=== PATIENT | female | born 1985 | race American Indian/Alaskan Native ===

== ENCOUNTER 2017-04-13 11:09 | Emergency (ER) | payer SELFPAY ==
[2017-04-13] MEDS ORDERED: ASPIRIN 81 MG CHEWABLE TABLETS PO ONE (11:30)
[2017-04-13 11:33] VITALS: PULSE 78; TEMP 98.4; BMI 30.4
--- NOTE | 2017-04-13 11:33 | PDOC ---
Attending Attestation - Resident Resident Name: Tiffanie Pickard - ED Attending Attestation I have performed the following: I have examined & evaluated the patient, The case was reviewed & discussed with the resident, I agree w/resident's findings & plan, Exceptions are as noted - HPI HPI: 04/13/17 11:32 Chest pain and cough - Physicial Exam PE: 04/13/17 11:33 vss/NAD - Medical Decision Making 04/13/17 11:[address] Pickard's Assessment and Plan
[2017-04-13 12:56] LABS: BASOPHIL 0.6 % (0-2.0); EOSINOPHIL 1.7 % (0-4.5); MCH 27.2 pg (25.7-33.7); MCHC 32.2 g/dl (32.0-36.0); MEAN CELL VOLUME 84.4 fl (80-96); MEAN PLT VOLUME 8.8 fl (7.5-11.1); NEUTROPHILS 59.1 % (42.8-82.8); PLATELET COUNT 279 K/MM3 (134-434); RDW 14.2 % (11.6-15.6); WHITE BLOOD COUNT 8.3 K/mm3 (4.0-10.0)
[2017-04-13 13:10] LABS: INR 0.97 (0.82-1.09); PROTHROMBIN TIME (PATIENT) 10.7 SEC (9.98-11.88)
[2017-04-13 13:22] LABS: ALBUMIN 3.9 g/dl (3.4-5.0); ANION GAP 9 (8-16); BILIRUBIN,TOTAL 0.5 mg/dL (0.2-1.0); CO2 25 mmol/L (21-32); CREATININE 0.5 mg/dL (0.55-1.02); GLUCOSE,RANDOM 97 mg/dL (74-106); SGOT/AST 15 U/L (15-37); SGPT/ALT 23 U/L (12-78)
[2017-04-13 13:24] LABS: ALK PHOS 93 U/L (45-117); CPK 126 IU/L (26-192); TROPONIN I < 0.02 ng/ml (0.00-0.05)
--- NOTE | 2017-04-13 15:19 | PDOC ---
History of Present Illness - General Chief Complaint: Chest Pain Stated Complaint: CHEST PAIN Time Seen by Provider: 04/13/17 11:26 History Source: Patient, Friend (neighbor and neighbor's sister) Exam Limitations: Language Barrier - History of Present Illness Initial Comments: 31yo F with PMH of recently diagnosed breast cancer presents c/o chest pain to Left breast. Pain is described as sharp/stabbing, began last night, contained within the Left breast, does not radiate, rated 7/10. Pt took Tylenol and Motrin, which did not relieve the pain. Pt also c/o a cough x 3 days. Pt arrived here from [place] one week ago, via a 13 [address] plane ride. Pt denies fever , palpitations, SOB, wheezing. 04/13/17 15:12 Past History - Past Medical History Allergies/Adverse Reactions: Allergies Allergy/AdvReac Type Severity Reaction Status Date / Time Penicillins Allergy Verified 04/13/17 11:26 Home Medications: Ambulatory Orders Metformin HCl 850 mg PO BID 04/13/17 Cancer: Yes (Breast left) Diabetes: Yes (po meds) - Surgical History Cholecystectomy: Yes - Family Disease History Family Disease History: Diabetes: Mother (htn), Heart Disease: Father (htn), Mother - Psycho/Social/Smoking Cessation Hx Suicidal Ideation: No Smoking History: Never smoked Information on smoking cessation initiated: No Hx Alcohol Use: No Drug/Substance Use Hx: No Substance Use Type: None Review of Systems - Review of Systems Able to Perform ROS?: Yes Is the patient limited Arabic proficient: Yes Constitutional: No: Chills, Diaphoresis, Fever HEENTM: No: Recent change in vision, Ear Pain, Nose Pain, Throat Pain Respiratory: Yes: Cough. No: Orthopnea, Shortness of Breath, Stridor, Wheezing , Hemoptysis Cardiac (ROS): Yes: Chest Pain (Left breast pain). No: Irregular Heart Rate, Lightheadedness, Palpitations, Syncope ABD/GI: No: Abdominal Distended, Constipated, Diarrhea, Nausea, Rectal Bleeding , Vomiting, Abdominal cramping : No: Burning, Dysuria, Hematuria Musculoskeletal: No: Joint Pain, Muscle Pain Integumentary: No: Bruising, Erythema, Rash Neurological: No: Headache, Paresthesia, Dizziness *Physical Exam - Vital Signs Last Vital Signs Temp Pulse Resp BP Pulse Ox 98.4 F 78 19 136/84 100 04/13/17 11:24 04/13/17 11:24 04/13/17 11:24 04/13/17 11:24 04/13/17 11:24 - Physical Exam Comments: Left breast has a palpable 1-2cm lump at 2 o'clock 3cm from the nipple. No other lumps appreciated bilaterally. The lump is tender to palpation, and is the source of pt's chest pain. 04/13/17 15:53 General Appearance: Yes: Nourished, Appropriately Dressed. No: Apparent Distress HEENT: positive: EOMI, Normal Voice, Other (moist mucous membranes). negative: Pale Conjunctivae, Scleral Icterus (R), Scleral Icterus (L) Neck: positive: Trachea midline, Supple Respiratory/Chest: positive: Lungs Clear, Normal Breath Sounds. negative: Respiratory Distress, Accessory Muscle Use Cardiovascular: positive: Regular Rhythm, Regular Rate, S1, S2. negative: Murmur Gastrointestinal/Abdominal: positive: Soft. negative: Distended, Guarding, Rebound, Tenderness Extremity: negative: Swelling, Calf Tenderness, Erythema Integumentary: positive: Dry, Warm. negative: Rash Neurologic: positive: Fully Oriented, Alert, Normal Mood/Affect, Normal Response , Motor Strength 5/5 ED Treatment Course - LABORATORY CBC & Chemistry Diagram: 04/13/17 12:27 04/13/17 12:27 - ADDITIONAL ORDERS Additional order review: Laboratory Results 04/13/17 04/13/17 04/13/17 12:27 12:27 12:27 INR 0.97 Sodium 139 Potassium 4.3 Chloride 105 Carbon Dioxide 25 Anion Gap 9 BUN 11 Creatinine 0.5 L Creat Clearance w eGFR > 60 Random Glucose 97 Calcium 9.0 Magnesium 2.0 Total Bilirubin 0.5 AST 15 ALT 23 Alkaline Phosphatase 93 Creatine Kinase Cancelled 126 Troponin I Cancelled < 0.02 Total Protein 8.0 Albumin 3.9 Urine HCG, Qual 04/13/17 11:49 INR Sodium Potassium Chloride Carbon Dioxide Anion Gap BUN Creatinine Creat Clearance w eGFR Random Glucose Calcium Magnesium Total Bilirubin AST ALT Alkaline Phosphatase Creatine Kinase Troponin I Total Protein Albumin Urine HCG, Qual Negative 04/13/17 12:27 RBC 4.32 MCV 84.4 MCHC 32.2 RDW 14.2 MPV 8.8 Neutrophils % 59.1 Lymphocytes % 32.0 Monocytes % 6.6 Eosinophils % 1.7 Basophils % 0.6 - RADIOLOGY Radiology Studies Ordered: Category Date Time Status CHEST CTA [CT] Stat CT Scan 04/13/17 12:15 Completed - Medications Given in the ED: ED Medications Discontinued Medications Generic Name Dose Route Start Last Admin Trade Name Jennifer PRN Reason Stop Dose Admin Aspirin 162 mg 04/13/17 11:30 04/13/17 12:31 Asa - PO 04/13/17 11:31 Not Given ONCE ONE Medical Decision Making - Medical Decision Making 31yo F with PMH of recently diagnosed breast cancer presents c/o chest pain to Left breast x 1 day. Chest is not tender to palpation. Lump appreciated at 2 o 'clock on Left breast is tender to palpation and is the source of pt's chest pain. Pt arrived here from [place] one week ago, via a 13 hr plane ride. CBC with diff and CMP wnl troponins (-) EKG - NSR urine (-) Chest CT/CTA - reveals no pulmonary embolism. No enlarged mediastinal or hilar lymph nodes appreciated. Spoke with Dr. Dawn regarding f/u care for pt regarding newly diagnosed breast ca. Pt can go home with instructions to f/u with Dr. Dawn (Oncology). [employer] work provided pt with the [employer], for discounts for health insurance. 04/13/17 15:52 *DC/Admit/Observation/Transfer Diagnosis at time of Disposition: Atypical chest pain - Discharge Dispostion Admit: No - Referrals Referrals: Crystal Dawn MD [Staff Physician] - - Patient Instructions Printed Discharge Instructions: Breast Cancer in Women Additional Instructions: Please follow-up with Dr. Hernandez for further medical treatment of your newly diagnosed breast cancer. You can always come back to [facility] for persistent or worsening symptoms of chest pain, or for any medical emergency.
[2017-04-13 16:35] VITALS: BP 120/81
--- NOTE | 2017-04-14 09:27 | EKG ---
Test Reason : Blood Pressure : / mmHG Vent. Rate : 075 BPM Atrial Rate : 075 BPM P-R Int : 142 ms QRS Dur : 080 ms QT Int : 400 ms P-R-T Axes : 008 033 034 degrees QTc Int : 446 ms NORMAL SINUS RHYTHM NORMAL ECG NO PREVIOUS ECGS AVAILABLE Confirmed by MD LATRICIA, LENIN ([id number]) on 04/14/2017 9:26:36 AM Referred By: Confirmed By:LENIN ROME MD
== END 2017-04-13 16:35 | disposition home or self-care (01) ==
LOC: JER 11:09
DX: R07.89 Other chest pain (principal); C50.912 Malignant neoplasm of unspecified site of left female breast
CPT/HCPCS: 36415; 71275-TC; 80053; 83735; 84484; 84703; 85025; 85610; 93005; 93010; 99284-25

== ENCOUNTER 2017-07-06 09:17 | Emergency (ER) | payer OTHER ==
[2017-07-06 09:39] VITALS: BP 125/78; PULSE 87; TEMP 98.9; BMI 32.0
--- NOTE | 2017-07-06 10:58 | PDOC ---
History of Present Illness - General Chief Complaint: Cold Symptoms Stated Complaint: COUGH, THROAT PAIN Time Seen by Provider: 07/06/17 10:05 History Source: Patient Exam Limitations: No Limitations - History of Present Illness Initial Comments: 07/06/17 10:53 Patient is a [31-year-old female with history of thf-gdrjzmp-kotnztbbi diabetes on metformin presents for evaluation of productive cough, sore throat with butler sputum, intermittent fever, now laryngitis this a.m. Denies any chest pain or shortness of breath.] Past Medical History: [Denies]. Allergies: No known allergies Medications: [See medication list] Family History: Non-contributory Social History: Denies smoking, alcohol use, or IVDU Review of Systems GENERAL/CONSTITUTIONAL: [No fever or chills. No weakness. No weight change.] HEAD, EYES, EARS, NOSE AND THROAT: [No change in vision. No ear pain or discharge. Sore throat,hoarse voice] CARDIOVASCULAR: [No chest pain or shortness of breath.] RESPIRATORY: [Productive cough,No wheezing, or hemoptysis.] GASTROINTESTINAL: [No nausea, vomiting, diarrhea or constipation. No rectal bleeding.] GENITOURINARY: [No dysuria, frequency, or change in urination.] MUSCULOSKELETAL: [No joint or muscle swelling or pain. No neck or back pain.] SKIN AND BREASTS: [No rash or easy bruising.] NEUROLOGIC: [No headache, vertigo, loss of consciousness, or loss of sensation.] PSYCHIATRIC: [No depression or anxiety.] ENDOCRINE: [No increased thirst. No abnormal weight change.] HEMATOLOGIC/LYMPHATIC: [No anemia, easy bleeding, or history of blood clots.] ALLERGIC/IMMUNOLOGIC: [No hives or skin allergy. No latex allergy.] Physical Exam: GENERAL: [The patient is awake, alert, and fully oriented, in no acute distress. ] HEAD: [Normal with no signs of trauma.] EYES: [Pupils equal, round and reactive to light, extraocular movements intact, sclera anicteric, conjunctiva clear.] ENT: [Ears normal, nares patent, oropharynx clear without exudates. Moist mucous membranes. No uvula deviation. Hoarse voice] NECK: [Normal range of motion, supple without lymphadenopathy, JVD, or masses.] LUNGS: [Breath sounds equal, rhonchi bilaterally, cleared with cough. No wheezes, and no crackles.] HEART: [Regular rate and rhythm, normal S1 and S2 without murmur, rub or gallop. ] ABDOMEN: [Soft, nontender, normoactive bowel sounds. No guarding, no rebound. No masses. No bruising or abrasions] MUSCULOSKELETAL: [Normal range of motion, no edema. No clubbing or cyanosis. No cords, erythema, or tenderness. No CVA Tenderness with fist.] NEUROLOGICAL: [Cranial nerves II through XII grossly intact. Normal speech, normal gait.] SKIN: [Warm, Dry, normal turgor, no rashes or lesions noted.] 07/06/17 10:56 Past History - Past Medical History Allergies/Adverse Reactions: Allergies Allergy/AdvReac Type Severity Reaction Status Date / Time Penicillins Allergy Verified 07/06/17 09:36 Home Medications: Ambulatory Orders Metformin HCl 850 mg PO BID 04/13/17 Azithromycin [Zithromax 250mg Tablets -] 250 mg PO UTDICT #6 tab 07/06/17 Cancer: Yes (Breast) COPD: No Diabetes: Yes (po meds) - Surgical History Cholecystectomy: Yes - Family Disease History Family Disease History: Diabetes: Mother (htn), Heart Disease: Father (htn), Mother - Suicide/Smoking/Psychosocial Hx Smoking History: Never smoked Hx Alcohol Use: No Drug/Substance Use Hx: No Substance Use Type: None *Physical Exam - Vital Signs Last Vital Signs Temp Pulse Resp BP Pulse Ox 98.9 F 87 19 125/78 99 07/06/17 09:36 07/06/17 09:36 07/06/17 09:36 07/06/17 09:36 07/06/17 09:36 ED Treatment Course - ADDITIONAL ORDERS Additional order review: 07/06/17 10:15 Group A Strep Rapid Antigen - Final Throat Medical Decision Making - Medical Decision Making 07/06/17 10:56 A/P : Patient with hoarse voice, sore throat, productive cough, rhonchi cleared with cough rapid strep sent for sore throat although clinical presentation does not suggest strep. Patient with bronchitis will DC patient on azithromycin, follow-up with PMD in 2 days if symptoms persist. I discussed the physical exam findings, ancillary test results and final diagnoses with the patient. I answered all of the patient's questions. The patient was satisfied with the care received and felt comfortable with the discharge plan and treatment plan. The patient will call to arrange follow-up and will return to the Emergency Department with any new, persistent or worsening symptoms. 07/06/17 10:57 *DC/Admit/Observation/Transfer Diagnosis at time of Disposition: Upper respiratory infection Qualifiers: URI type: unspecified URI Qualified Code(s): J06.9 - Acute upper respiratory infection, unspecified - Discharge Dispostion Disposition: HOME Condition at time of disposition: Stable Admit: No - Prescriptions Prescriptions: Azithromycin [Zithromax 250mg Tablets -] 250 mg PO UTDICT #6 tab - Referrals - Patient Instructions Additional Instructions: Warm saltwater gargles, change her toothbrush after completing antibiotic therapy. Recommend follow-up with PMD in 2 days if symptoms persist. Motrin for fever. - Post Discharge Activity Forms/Work/School Notes: Back to Work
== END 2017-07-06 11:01 | disposition home or self-care (01) ==
LOC: JERFT 09:17
DX: J06.9 Acute upper respiratory infection, unspecified (principal); E11.9 Type 2 diabetes mellitus without complications; Z79.84 Long term (current) use of oral hypoglycemic drugs; Z85.3 Personal history of malignant neoplasm of breast
CPT/HCPCS: 87070; 87430; 99281-25

== ENCOUNTER 2019-06-28 20:38 | Emergency (ER) | payer OTHER ==
[2019-06-28 20:47] VITALS: BP 111/55; PULSE 89; TEMP 98.7; BMI 32.8
--- NOTE | 2019-06-28 22:32 | PDOC ---
History of Present Illness - General Chief Complaint: Ear Problem Stated Complaint: ear pain Time Seen by Provider: 06/28/19 22:15 History Source: Patient Exam Limitations: Clinical Condition - History of Present Illness Initial Comments: 06/28/19 22:33 Patient with no significant past medical history present with complaint of right ear pain today with feeling of decreased hearing in right ear since this morning. Denies fever, chills, nausea or vomiting. Denies headache or dizziness. Denies any other symptoms. Patient did not take anything for symptoms Is this a multiple visit Asthma Patient?: No Timing/Duration: 24 hours Past History - Past Medical History Allergies/Adverse Reactions: Allergies Allergy/AdvReac Type Severity Reaction Status Date / Time Penicillins Allergy Verified 06/28/19 20:47 Home Medications: Ambulatory Orders metFORMIN HCL [Metformin HCl] 850 mg PO BID 04/13/17 Azithromycin [Zithromax 250mg Tablets -] 250 mg PO UTDICT #6 tab 07/06/17 Neomycin/Polymyxin B/Hydrocort [Ainymnlv-Ihiypacxr-Qc Ear Susp] 4 drop OT Q8H 5 Days #1 bottle 06/28/19 Cancer: Yes (Breast) COPD: No Diabetes: Yes (po meds) - Surgical History Cholecystectomy: Yes - Psycho Social/Smoking Cessation Hx Smoking History: Never smoked Hx Alcohol Use: No Drug/Substance Use Hx: No Substance Use Type: None Review of Systems - Review of Systems Able to Perform ROS?: Yes Is the patient limited [place] proficient: No Constitutional: No: Chills, Fever, Malaise HEENTM: Yes: Symptoms Reported, See HPI, Ear Pain (right ear pain). No: Eye Pain, Blurred Vision, Tearing, Recent change in vision, Double Vision, Cataracts , Ocular Prothesis, Ear Discharge, Nose Pain, Nose Congestion, Tinnitus, Nose Bleeding, Hearing Loss, Throat Pain, Throat Swelling, Mouth Pain, Dental Problems, Difficulty Swallowing, Mouth Swelling, Other Respiratory: No: Symptoms reported, See HPI, Cough, Orthopnea, Shortness of Breath, SOB with Exertion, SOB at Rest, Stridor, Wheezing, Productive cough, Hemoptysis, Other Cardiac (ROS): No: Symptoms Reported, See HPI, Chest Pain, Edema, Irregular Heart Rate, Lightheadedness, Palpitations, Syncope, Chest Tightness, Other ABD/GI: No: Symptoms Reported, See HPI, Nausea, Vomiting Musculoskeletal: No: Symptoms Reported, Muscle Pain Integumentary: No: Symptoms Reported Neurological: No: Symptoms reported, Headache, Pre-Existing Deficit, Unsteady Gait, Ataxia, Dizziness All Other Systems: Reviewed and Negative *Physical Exam - Vital Signs Last Vital Signs Temp Pulse Resp BP Pulse Ox 98.7 F 89 18 111/55 L 99 06/28/19 20:44 06/28/19 20:44 06/28/19 20:44 06/28/19 20:44 06/28/19 20:44 - Physical Exam Comments: 06/28/19 22:36 GENERAL: Well developed, well nourished. Awake and alert. No acute distress. HEENT: Mild serous fluid in right ear canal with moderate swelling external right ear canal. Left ear canal with minimal cerumen with normal tympanic membrane. Normocephalic, atraumatic. PERRLA, EOMI. No conjunctival pallor. Sclera are non-icteric. Moist mucous membranes. Oropharynx is clear. NECK: Supple. Full ROM. CARDIOVASCULAR: Regular rate and rhythm. No murmurs, rubs, or gallops. Distal pulses are 2+ and symmetric. PULMONARY: No evidence of respiratory distress. Lungs clear to auscultation bilaterally. No wheezing, rales or rhonchi. MUSCULOSKELETAL Normal range of motion at all joints. SKIN: Warm and dry. Normal capillary refill. No rashes. No jaundice. NEUROLOGICAL: Alert, awake, appropriate. Gait is normal without ataxia. PSYCHIATRIC: Cooperative. Good eye contact. Appropriate mood General Appearance: Yes: Nourished, Appropriately Dressed. No: Apparent Distress Medical Decision Making - Medical Decision Making 06/28/19 22:34 Patient with no significant past medical history present with complaint of right ear pain today with feeling of decreased hearing in right ear since this morning. Denies fever, chills, nausea or vomiting. Denies headache or dizziness. Denies any other symptoms. Patient did not take anything for symptoms Exam significant for moderate swelling and right ear canal with small amount of serous fluid in right ear canal. Left ear canal with minimal cerumen with normal tympanic membrane. Patient afebrile. Patient stable for outpatient management otitis externa with neomycin with polymycin eardrops with advised to take Motrin as needed for pain and follow-up with ENT if no improvement in 3 days. Patient stable for discharge Discharge - Discharge Information Problems reviewed: Yes Clinical Impression/Diagnosis: Left otitis externa Qualifiers: Otitis externa type: diffuse Chronicity: acute Qualified Code(s): H60.312 - Diffuse otitis externa, left ear Condition: Stable Disposition: HOME - Admission No - Additional Discharge Information Prescriptions: Neomycin/Polymyxin B/Hydrocort [Ikyunpgo-Pcoxynuvg-Jp Ear Susp] 4 drop OT Q8H 5 Days #1 bottle - Follow up/Referral Referrals: Tom Barahona MD [Staff Physician] - - Patient Discharge Instructions Patient Printed Discharge Instructions: DI for Otitis Externa Additional Instructions: You are being treated for right ear infection. Take prescribed eardrops as prescribed. Take Motrin as needed for pain. Follow-up referred ENT if symptoms does not improve in 3 days - Post Discharge Activity
== END 2019-06-28 22:40 | disposition home or self-care (01) ==
LOC: JERFT 20:38
DX: H60.311 Diffuse otitis externa, right ear (principal); Z85.3 Personal history of malignant neoplasm of breast; E11.9 Type 2 diabetes mellitus without complications; Z88.0 Allergy status to penicillin
CPT/HCPCS: 99281-25

== ENCOUNTER 2020-03-29 11:44 | Emergency (ER) | payer OTHER ==
[2020-03-29 11:57] VITALS: TEMP 99.1; BMI 29.9
[2020-03-29] MEDS ORDERED: FAMOTIDINE 20 MG/50 ML IVPB 20 MG/50 ML MG IVPB ONE ×2 (12:54→13:57)
[2020-03-29] MEDS ORDERED: SODIUM CHLORIDE 1,000 ML IV STA (12:54)
[2020-03-29] MEDS ORDERED: METOCLOPRAMIDE HCL INJECTION 10 MG/2 ML VIAL IVPB ONE (12:54)
--- NOTE | 2020-03-29 13:13 | PDOC ---
History of Present Illness - General Chief Complaint: Vomiting/Diarrhea Stated Complaint: VOMITING/DIARRHEA Time Seen by Provider: 03/29/20 12:51 History Source: Patient Exam Limitations: Clinical Condition - History of Present Illness Initial Comments: 03/29/20 13:07 Patient with no significant past medical history present with complaint of 5-day history of nausea, vomiting and periumbilical and suprapubic abdominal pain. Patient reported being seen in urgent care 2 days ago for symptoms and was prescribed Zofran but still has been feeling nauseous. LMP March 20. Denies diarrhea or constipation. Reported last bowel movement was yesterday which was normal for her. Denies fever, chills, cough, shortness of breath, dizziness, weakness. Denies any other symptoms. Denies history of abdominal surgeries. Denies urinary frequency, dysuria, burning urination, vaginal discharge or vaginal bleeding. Is this a multiple visit Asthma Patient?: No Timing/Duration: other (5 days) Past History - Medical History Allergies/Adverse Reactions: Allergies Allergy/AdvReac Type Severity Reaction Status Date / Time Penicillins Allergy Verified 03/29/20 11:55 Home Medications: Ambulatory Orders metFORMIN HCL [Metformin HCl] 850 mg PO BID 04/13/17 Azithromycin [Zithromax 250mg Tablets -] 250 mg PO UTDICT #6 tab 07/06/17 Neomycin/Polymyxin B/Hydrocort [Auqisgdd-Lqrlxnkas-Zj Ear Susp] 4 drop OT Q8H 5 Days #1 bottle 06/28/19 Ciprofloxacin [Cipro (Restricted To Id)] 500 mg PO Q12H 7 Days #14 tablet 03/29/20 Cancer: Yes (Breast) COPD: No Diabetes: Yes (po meds) - Surgical History Cholecystectomy: Yes - Reproductive History Is Patient Now?: No - Immunization History Immunization Up to Date: Yes - Psycho-Social/Smoking History Smoking History: Never smoked - Substance Abuse Hx (Audit-C & DAST Scrn) How often the patient has a drink containing alcohol: Never Score: In Men: 4 or > Positive; In Women: 3 or > Positive: 0 Screen Result (Pos requires Nsg. Audit-10AR): Negative In the last yr the pt used illegal drug/Rx for NonMed reason: No Score: Yes response is considered Positive: 0 Screen Result (Positive result requires Nsg. DAST-10): Negative Review of Systems - Review of Systems Able to Perform ROS?: Yes Is the patient limited Uzbek proficient: No Constitutional: No: Chills, Fever, Malaise HEENTM: No: Symptoms Reported, See HPI, Eye Pain, Blurred Vision, Tearing, Recent change in vision, Double Vision, Cataracts, Ear Pain, Ocular Prothesis, Ear Discharge, Nose Pain, Nose Congestion, Tinnitus, Nose Bleeding, Hearing Loss, Throat Pain, Throat Swelling, Mouth Pain, Dental Problems, Difficulty Swallowing, Mouth Swelling, Other Respiratory: No: Symptoms reported, See HPI, Cough, Orthopnea, Shortness of Breath, SOB with Exertion, SOB at Rest, Stridor, Wheezing, Productive cough, Hemoptysis, Other Cardiac (ROS): No: Symptoms Reported, See HPI, Chest Pain, Edema, Irregular Heart Rate, Lightheadedness, Palpitations, Syncope, Chest Tightness, Other ABD/GI: Yes: Symptoms Reported, See HPI, Nausea, Abdominal cramping. No: Abdominal Distended, Abd. Pain w/ defecation, Blood Streaked Bowels, Constipated, Diarrhea, Difficulty Swallowing, Poor Appetite, Poor Fluid Intake, Rectal Bleeding, Vomiting, Indigestion, Tarry Stools, Other : No: Symptoms Reported, Burning, Dysuria, Discharge, Frequency, Urgency Musculoskeletal: No: Symptoms Reported, Back Pain All Other Systems: Reviewed and Negative *Physical Exam - Vital Signs Last Vital Signs Temp Pulse Resp BP Pulse Ox 99.1 F 100 H 18 106/79 100 03/29/20 11:55 03/29/20 11:55 03/29/20 11:55 03/29/20 11:55 03/29/20 11:55 - Physical Exam 03/29/20 13:14 GENERAL: Well developed, well nourished. Awake and alert. No acute distress. HEENT: Normocephalic, atraumatic. PERRLA, EOMI. No conjunctival pallor. Sclera are non-icteric. Moist mucous membranes. Oropharynx is clear. NECK: Supple. Full ROM. CARDIOVASCULAR: Regular rate and rhythm. No murmurs, rubs, or gallops. Distal pulses are 2+ and symmetric. PULMONARY: No evidence of respiratory distress. Lungs clear to auscultation bilaterally. No wheezing, rales or rhonchi. ABDOMINAL: Soft. Moderate suprapubic abdominal tenderness with mild periumbilical tenderness. Non-distended. No rebound or guarding. No organomegaly. Mild increased diffuse bowel sounds. MUSCULOSKELETAL Normal range of motion at all joints. Warm and dry. Normal capillary refill. No rashes. No jaundice. NEUROLOGICAL: Alert, awake, appropriate. Gait is normal without ataxia. PSYCHIATRIC: Cooperative. Good eye contact. Appropriate mood General Appearance: Yes: Nourished, Appropriately Dressed. No: Apparent Distress ED Treatment Course - LABORATORY CBC & Chemistry Diagram: 03/29/20 14:00 03/29/20 14:00 Medical Decision Making - Medical Decision Making 03/29/20 13:09 Patient with no significant past medical history present with complaint of 5-day history of nausea, vomiting and periumbilical and suprapubic abdominal pain. Patient reported being seen in urgent care 2 days ago for symptoms and was prescribed Zofran but still has been feeling nauseous. LMP March 20. Denies diarrhea or constipation. Reported last bowel movement was yesterday which was normal for her. Denies fever, chills, cough, shortness of breath, dizziness, w eakness. Denies any other symptoms. Denies history of abdominal surgeries. Denies urinary frequency, dysuria, burning urination, vaginal discharge or vaginal bleeding. Exam significant for moderate tenderness to suprapubic region with mild tenderness to periumbilical without guarding or rebound. Increased diffuse bowel sounds. Patient afebrile. Lungs clear to auscultation bilateral and norm al cardio exam. Patient symptoms likely cystitis versus less likely early appendicitis versus constipation. CBC, CMP labs ordered. UA and urine culture lab ordered to rule out cystitis. Urine hCG ordered to rule out . IV hydration with 1 L normal saline, Tylenol 1 g IV and Pepcid 20 mg IV with Reglan 10 mg IV ordered for abdominal pain with nausea. Will consider abdominal CT based on lab result 03/29/20 15:29 CBC and chemistry lab unremarkable. UA shows leukocytosis with WBCs which is likely the cause of patient suprapubic abdominal tenderness and patient will be treated on Cipro for cystitis with advised to continue home Zofran PRN for nausea. Option given to patient symptoms likely UTI but if she is still wants abdominal CT, will do the CT. patient opted to be treated with antibiotics and hold off on CT. Strict follow-up instructions discussed with patient and patien t will follow-up with primary care Discharge - Discharge Information Problems reviewed: Yes Clinical Impression/Diagnosis: Acute cystitis Qualifiers: Hematuria presence: without hematuria Qualified Code(s): N30.00 - Acute cystitis without hematuria Abdominal pain Qualifiers: Abdominal location: lower abdomen, unspecified Qualified Code(s): R10.30 - Lower abdominal pain, unspecified Condition: Stable Disposition: HOME - Admission No - Additional Discharge Information Prescriptions: Ciprofloxacin [Cipro (Restricted To Id)] 500 mg PO Q12H 7 Days #14 tablet - Follow up/Referral Referrals: Stephen Cavazos MD [Primary Care Provider] - - Patient Discharge Instructions Patient Printed Discharge Instructions: DI for Urinary Tract Infection (UTI) Additional Instructions: Your blood work is normal. Your urine shows bacteria in the urine which is likely the cause of your abdominal pain and vomiting. Take prescribed antibiotics as prescribed and finish it. You can continue Zofran as needed for nausea. Increase fluid intake. Follow-up with your primary care - Post Discharge Activity
[2020-03-29] MEDS ORDERED: METOCLOPRAMIDE HCL INJECTION 10 MG/2 ML VIAL ONE (13:57)
[2020-03-29 14:35] LABS: BASO % 1.1 % (0-2.0); EOS % 0.2 % (0-4.5); HEMATOCRIT 37.8 % (32.4-45.2); HEMOGLOBIN 12.4 GM/dL (10.7-15.3); LYMPH % 16.6 % (8-40); MCH 28.8 pg (25.7-33.7); MCHC 32.9 g/dl (32.0-36.0); MEAN CELL VOLUME 87.3 fl (80-96); MEAN PLT VOLUME 9.5 fl (7.5-11.1); MONO % 4.7 % (3.8-10.2); NEUT % 77.4 % (42.8-82.8); PLATELET COUNT 292 K/MM3 (134-434); RBC 4.32 M/mm3 (3.60-5.2); RDW 13.7 % (11.6-15.6); WHITE BLOOD COUNT 9.1 K/mm3 (4.0-10.0)
[2020-03-29 14:51] LABS: HCG,QUALITATIVE URINE Negative
[2020-03-29 14:52] LABS: EPI CELLS 34 /uL (0-25.1); HYALINE CASTS 1 /uL (0-3.1); PH,URINE 5.5 (5.0-8.0); URINE APPEARANCE CLEAR; URINE BACTERIA 783 /uL (0-1359); URINE BILIRUBIN NEGATIVE (NEGATIVE); URINE COLOR YELLOW; URINE GLUCOSE (UA) NEGATIVE (NEGATIVE); URINE KETONE 2+ (NEGATIVE); URINE LEUK ESTERASE 1+ (NEGATIVE); URINE NITRITE NEGATIVE (NEGATIVE); URINE PROTEIN 1+ (NEGATIVE); URINE RBC 11 /uL (0-23.9); URINE UROBILINOGEN 0.2 mg/dL (0.2-1.0); URINE WBC 79 /uL (0-25.8)
[2020-03-29 15:12] LABS: ALBUMIN 4.4 g/dl (3.4-5.0); BILIRUBIN,TOTAL 1.2 mg/dL (0.2-1); BLOOD UREA NITROGEN 8.9 mg/dL (7-18); CALCIUM 9.7 mg/dL (8.5-10.1); CREATININE 0.9 mg/dL (0.55-1.3); POTASSIUM 3.8 mmol/L (3.5-5.1); TOT PROT 8.7 g/dl (6.4-8.2)
[2020-03-29 15:34] VITALS: BP 121/71; PULSE 76
== END 2020-03-29 15:34 | disposition home or self-care (01) ==
LOC: JER 11:44
PROC: 3E033GC Introduction of Other Therapeutic Substance into Peripheral Vein, Percutaneous Approach (ICD-10-PCS; principal; 2020-03-29)
PROC: 3E0337Z Introduction of Electrolytic and Water Balance Substance into Peripheral Vein, Percutaneous Approach (ICD-10-PCS; 2020-03-29)
DX: N30.00 Acute cystitis without hematuria (principal); R10.30 Lower abdominal pain, unspecified
CPT/HCPCS: 36415; 80053; 81003; 84703; 85025; 87086; 96361; 96374; 96375; 99285-25

== ENCOUNTER 2020-10-14 21:54 | Emergency (ER) | payer OTHER ==
[2020-10-14 22:03] VITALS: BP 106/63; PULSE 86; TEMP 98.3; BMI 27.4
== END 2020-10-15 00:32 | disposition home or self-care (01) ==
LOC: JER 21:54
DX: M25.572 Pain in left ankle and joints of left foot (principal)
CPT/HCPCS: 73610-TC-LT-FY; 73630-TC-LT; 99283-25